=== PATIENT | female | born 1975 | race Caucasian/White ===

== ENCOUNTER 2016-11-14 15:48 | Emergency (ER) | payer OTHER | END 2016-11-14 16:28 | disposition home or self-care (01) | LOC: ER 15:48 | DX: M77.9 Enthesopathy, unspecified (principal); J02.9 Acute pharyngitis, unspecified; F17.210 Nicotine dependence, cigarettes, uncomplicated | CPT/HCPCS: 73080; 96372; J1885 ==

== ENCOUNTER → 2016-12-07 | Day surgery (SDC) | payer OTHER | END | disposition home or self-care (01) | LOC: SDC 11:00 | DX: K81.1 Chronic cholecystitis (principal); J45.909 Unspecified asthma, uncomplicated; K21.9 Gastro-esophageal reflux disease without esophagitis; E66.01 Morbid (severe) obesity due to excess calories; F17.210 Nicotine dependence, cigarettes, uncomplicated; Z88.8 Allergy status to other drugs, medicaments and biological substances; Z79.899 Other long term (current) drug therapy; Z98.890 Other specified postprocedural states | CPT/HCPCS: J0360; J1885; J2704; J2765; Q9967 ==